=== PATIENT | female | born 1995 | race Caucasian/White ===

== ENCOUNTER → 2023-04-12 | Outpatient (CLI) | payer OTHER, SELFPAY ==
--- OUTSIDE RECORDS SUMMARY | 2023-04-12 16:45 | XMS RPT_ITS | CCD ---
Author Name Unknown Address [address] [place] [address] Organization [facility] Care Team Providers Care General Ophthalmologist Name Role Phone Unavailable Primary Care Provider Unavailabl e STEPH SILVERMAN Attending Unavailable Herrera [employer]OR[employer] STRAIGHTENER AND HEATER.Steph JAMES Primary Care Provider HERRERA STEPH A Primary Care Unavailable JOSE LUIS MARTIN Attending Unavailable EHRRERA STEPH A Primary Care Unavailable JOSE LUIS MARTIN Attending Unavailable HERRERA STEPH Alicia Primary Care Unavailable JOSE LUIS MARTIN Attending Unavailable MERA JOVEL Referring Unavailable QUEDEN, STEPH A Primary Care Unavailable MERA JOVEL Attending Unavailable QUEJUAN DAVID, STEPH A Primary Care Unavailable HERRERA, STEPH A Primary Care Unavailable JOSE LUIS MARTIN Attending Unavailable HERRERA STEPH A Primary Care Unavailable MITCH JULIEN Attending Unavailable Medications Completed/Discontinued Medications Medication Drug Class(es) Dates Sig (Normalized) Sig (Original) Ethinyl Estradiol / Levonorgestrel (6 sources) Progestin, Estrogen, Progestin-containing Intrauterine Device take 1 tablet by mouth once daily Levonorgestrel-Et hinyl Estrad (LESSINA) 0.1mg - 20mcg per tablet Take 1 tablet by mouth once daily. 0 Active Problems Active Problems Problem Classification Problem Date Documented Date Episodic/Chronic Anxiety disorders (2 sources) Mixed anxiety and depressive disorder; Translations: [Anxiety disorder, unspecified] Onset: 12-24-2021 Chronic Joint disorders and dislocations; trauma-related (3 sources) Dislocation of temporomandibular joint; Translations: [Dislocation of jaw, unspecified side, subsequent encounter] Onset: 03-04-2023 03-02-2023 Episodic Menstrual disorders (2 sources) Menorrhagia; Translations: [Excessive and frequent menstruation with regular cycle] Onset: 12-31-2022 12-30-2022 Chronic Mood disorders (1 source) Mood disorders; Translations: [Anxiety and depression] Onset: 12-24-2021 Past or Other Problems Problem Classification Problem Date Documented Da te Episodic/Chronic Malaise and fatigue (2 sources) Fatigue; Translations: [Other fatigue] Onset: 12-31-2022 12-30-2022 Episodic Results Test Name Value Interpretation Reference Range Facil ity Vital Signs Date Time Vital Sign Value Performing Clinician Ruchi mcintyre 12-30-2022 18:47-0400 Body weight 45.81 kg Mera Jovel [employer]ENER [employer] HE[employer].PLANT UTILITY PERSON Work Phone: [facility] 12-30-2022 18:47-0400 Diastolic blood pressure 72 mm[Hg] Mera Jovel [employer]ENER [employer] HE[employer].PLANT UTILITY PERSON Work Phone: [facility] 12-30-2022 18:47-0400 Heart rate 94 /min Mera Jovel [employer]ENER AND HEATER.PLANT UTILITY PERSON Work Phone: [facility] 12-30-2022 18:47-0400 Respiratory rate 16 /min Mera Jovel [employer]ENER AND HEATER.PLANT UTILITY PERSON Work Phone: [facility] 12-30-2022 18:47-0400 Systolic blood pressure 100 mm[Hg] Mera Jovel [employer]ENER AND HEATER.PLANT UTILITY PERSON Work Phone: [facility] 12-24-2021 14:19-0400 Body height 157.5 cm Steph Silverman [employer]ENER AND HEATER.PLANT UTILITY PERSON Work Phone: [facility] 12-24-2021 14:19-0400 Body temperature 98.4 [degF] Steph Mikeden [employer]ENER AND HEATER.PLANT UTILITY PERSON Work Phone: [facility] 12-24-2021 14:19-0400 Body weight 44.27 kg Stephrosa elena Silverman [employer]ENER AND HEATER.PLANT UTILITY PERSON Work Phone: [facility] 12-24-2021 14:19-0400 Diastolic blood pressure 62 mm[Hg] Steph Mckeonden [employer]ENER AND HEATER.PLANT UTILITY PERSON Work Phone: [facility] 12-24-2021 14:19-0400 Heart rate 98 /min Steph Silverman [employer]ENER AND HEATER.PLANT UTILITY PERSON Work Phone: [facility] 12-24-2021 14:19-0400 Respiratory rate 18 /min Steph Silverman [employer]ENER AND HEATER.PLANT UTILITY PERSON Work Phone: [facility] 12-24-2021 14:19-0400 SaO2% (BldA) [Mass fraction] 98 % Steph Silverman [employer]ENER AND HEATER.PLANT UTILITY PERSON Work Phone: [facility] 12-24-2021 14:19-0400 Systolic blood pressure 110 mm[Hg] Steph Silverman [employer] AND HEATER.PLANT UTILITY PERSON Work Phone: [facility] Encounters Encounter Date Encounter Type Care Provider Facility Start: 04-05-2023 End: 04-05-2023 ambulatory STEPH A QUEDEN Facility:[facility] Start: 03-29-2023 End: 03-29-2023 ambulatory STEPH A QUEDEN Facility:[facility] Start: 03-24-2023 End: 03-24-2023 ambulatory STEPH A QUEDEN Facility:[facility] Start: 03-18-2023 End: 03-18-2023 ambulatory STEPH A QUEDEN Facility:[facility] Start: 03-02-2023 End: 03-02-2023 ambulatory STEPH A QUEDEN Facility:[facility] Start: 03-02-2023 End: 03-02-2023 ambulatory Jose Luis Tolentino [facility] Physical Therapy Plan of Treatment Date Care Activity Detail Author Start: 12-30-2022 End: 03-01-2023 CBC W Auto Differential panel - Blood CBC + DIFF Lab Routine Fatigue, unspecified type Menorrhagia with regular cycle Expected: 12/30/2022, Expires: 03/01/2023 [facility] Work Phone: Payers Date Payer Category Payer Private Health Insurance [id number] 2023 Private Health Insurance [employer] A ETNA POS [id number] 2023-Present [phone] [address] [place] [address] POS [id number] 2023 Private Health Insurance [id number] 2022 Unknown [employer] BLUE CARD PPO OOS [id number] 2022-Present [phone] [address] [place] [address] PPO [id number] 2022 Unknown [id number] Social History Date Type Detail Facility Start: 12-24-2021 Tobacco smoking stat [facility] Never smoked tobacco [facility] Start: 12-24-2021 Tobacco use and exposure Smokeless tobacco non-user [facility] Start: 12-24-2021 Alcohol intake Ex-drinker (finding) [facility] Start: 1995 Sex Assigned At Not on file [facility] Start: 12-14-2021 End: 12-24-2021 Exposure to SARS-CoV-2 (event) Not sure [facility] Start: 12-24-2021 End: 12-23-2022 History of Social function [facility] Work Phone: Start: 12-24-2021 End: 12-23-2022 Tobacco use panel [facility] Work Phone: Adult Depression Screening Assessment 2 [facility] Work Phone: Has the [employer] threatened to shut off services in your home in past 12Mo No [facility] Are you now , , , , never or living with a partner? [facility] How often to you hav e a drink containing alcohol? Never [facility] Do you feel stress - tense, restless, nervous, or anxious, or unable to sleep at night because your mind is troubled all the time - these days [OSQ] Not at all [facility] (I/We) worried wheth er (my/our) food would run out before (I/we) got money to buy more. Never true [facility] Clinical Notes 12-24-2021 to 04-08-2023 Jose Luis Martin, PT - 03/04/2023 12:57 PM Jose Luis Ortega, PT - 03/02/2023 8:27 AM KARLIESole subramanian END WORKER - 01/13/2023 9:54 AM EDTTelephone Encounter - Antonieta Moore END WORKER - 01/04/2023 12:17 PM EDT Note Date & Type Note Facility 04-08-2023 Note HNO ID: [id number] Author: JOSE LUIS MARTIN PT Service: ? Author Type: Physical Therapist Type: Progress Notes Filed: 04/08/2023 10:10 Note Text: Episode Visit Count: 5 Therapist That Will Accept/Oversee The Plan Of Care: Jose Luis Martin Start of Care Date: 03/02/23 Onset Date: 10/31/22 REHABILITATION AND SPORTS THERAPY PHYSICAL THERAPY PROGRESS REPORT PLAN OF CARE UPDATE: Assessment: Nigel Gupta demonstrates difficulty with eating, chewing, and jaw opening. She has progressed toward goals. Patient continues to present with impairments in ADL's, overall function, range of motion, strength, symptom management, and tissue tenderness that interfere with . Current prognosis is Good due to: current objective clinical presentation, good overall health status, positive past response to therapy, within-session changes, good support system/ coping skills . She will benefit from continued skilled therapy services to meet the updated goals for this plan of care as noted below. Goals updated on 04/05/2023. Goals for Episode of Care: created on 03/02/23 through 05/05/23 Patient to report symptom free with talking and chewing. Not met Decrease tenderness to palpation of craniofacial and intraoral musculature by 75% with no active referral symptoms. Not met Increase mandibular ROM to >40mm of opening. Progressing towards Planned Interventions, Frequency, and Duration: 1x every other week, 4 weeks Total Number of Visits Planned: 2 Patient to be seen for Therapeutic exercise (65206), Neuromuscular re-education (97521), Manual therapy (67036), Self-intermediate management (10568), Therapeutic activities (07936), Patient/Family/Caregiver Education, Body Mechanics Training PLAN FOR NEXT VISIT: Continue lateral pterygoid work SUBJECTIVE: So far patient has only seen temporary improvements with no lasting change. Pain: Pain Pain Level: 4 Pain Location: Jaw Description: Aching, Sore, Tightness Frequency: Intermittent PROMIS Scales Higher is Better 03/29/2023 02/28/2023 Phys Func - Score 57 (within normal limits) 62 (within normal limits) Phys Func - Percentile 76% 88% Self-Eff Symptom - Score 41 (Average) 41 (Average) Self-Eff Symptom - Percentile 18% 18% T-scores: mean of general population = 50. 5 points is clinically meaningfully difference Percentiles provide an indication of how the patient's score ranks in relation to the general population. Higher percentile rankings indicate better function/quality of life. 50th percentile is the average of the general population and indicates half of respondents had a worse score. OBJECTIVE MEASURES WITH LEVEL OF FUNCTION: TMJ AROM Mandibular Opening (mm): 36 Millimeters Mandibular Lateral Excursion Right (mm): 6 Millimeters TREATMENT: Therapeutic Exercise: 1: *Tongue against roof of mouth opening 3x5 2: *Box exercise 3x5 3: *Lateral excursion 3x5/side 4: Jaw isometrics 3x20 sec (instructed to do so after manual) Skilled Intervention: Patient was educated in proper exercise technique and purpose for exercises. Skilled judgment was used in selection of appropriate interventions. Provided written instruction for home exercise program to facilitate proper performance and compliance. Correct performance of therapeutic exercises was facilitated with verbal, visual, and tactile cuing. Manual Therapy: 1: L inferior, posterior, and R lateral mobs grades 3-4 x30 each 2: STM and TrPr to L masseter, medial pterygoid with push to tolerance Dry Needling: (1) 30 mm needle to L superior lateral pterygoid with placement of needle only Skilled Intervention: Manual skills to improve joint mobility, ROM, and decrease pain. Utilized anatomy knowledge of the therapist, and assessment of patient's response to intervention. Billing Therapeutic Exercise Treatment Minutes: 15 Manual TherapyTreatment Minutes: 35 Skilled Treatment Time Minutes (timed and untimed codes): 50 Total Session Time (minutes): 50 Session Start Time : 1710 Session Stop Time : 1800 Jose Luis Martin PT [facility] 03-30-2023 Note HNO ID: [id number] Author: JOSE LUIS MARTIN PT Service: ? Author Type: Physical Therapist Type: Progress Notes Filed: 03/30/2023 14:49 Note Text: Episode Visit Count: 4 Therapist That Will Accept/Oversee The Plan Of Care: Jose Luis Martin Start of Care Date: 03/02/23 Onset Date: 10/31/22 REHABILITATION AND SPORTS THERAPY PHYSICAL THERAPY TREATMENT NOTE ASSESSMENT: Nigel Gupta tolerated the session with decreased symptoms. She demonstrated difficulty with TMJ pain. The patient will continue to benefit from ongoing skilled physical therapy to progress toward set goals and progress report by evaluating physical therapist. PLAN FOR NEXT VISIT: [place] SUBJECTIVE: Patient saw no improvements after last session. Notes that she is doing better opening in a straight line, but pain remains Pain: Pain Pain Level: 4 Pain Location: Jaw Description: Aching, Sore, Tightness Frequency: Intermittent OBJECTIVE MEASURES WITH LEVEL OF FUNCTION: TMJ AROM Mandibular Opening (mm): 36 Millimeters TREATMENT: Manual Therapy: 1: L inferior, posterior, and R lateral mobs grades 3-4 x30 each 2: STM and TrPr to L masseter, medial pterygoid with push to tolerance Dry Needling: (1) 25 mm needle to L lateral pterygoid with pistoning (1 needle in, 1 needle out, patient consent gained) Skilled Intervention: Manual skills to improve joint mobility, ROM, and decrease pain. Utilized anatomy knowledge of the therapist, and assessment of patient's response to intervention. Billing Manual TherapyTreatment Minutes: 54 Skilled Treatment Time Minutes (timed and untimed codes): 54 Total Session Time (minutes): 54 Session Start Time : 1716 Session Stop Time : 1810 Jose Luis Martin PT [facility] 03-24-2023 Note HNO ID: [id number] Author: JOSE LUIS MARTIN PT Service: ? Author Type: Physical Therapist Type: Progress Notes Filed: 03/24/2023 18:16 Note Text: Episode Visit Count: 3 Therapist That Will Accept/Oversee The Plan Of Care: Jose Luis Martin Start of Care Date: 03/02/23 Onset Date: 10/31/22 REHABILITATION AND SPORTS THERAPY PHYSICAL THERAPY TREATMENT NOTE ASSESSMENT: Nigel Gupta tolerated the session with decreased symptoms and expected muscle soreness. She demonstrated improvements in jaw mobility post session. The patient will continue to benefit from ongoing skilled physical therapy to progress toward set goals. PLAN FOR NEXT VISIT: Continue manual, may try lateral pterygoid again SUBJECTIVE: Patient had 2 days of relief after first session, then last session she said it felt good, but no lasting relief Pain: Pain Pain Level: 4 Pain Location: Jaw Description: Aching, Sore, Tightness Frequency: Intermittent OBJECTIVE MEASURES WITH LEVEL OF FUNCTION: TMJ AROM Mandibular Opening (mm): 36 Millimeters Mandibular Lateral Excursion Right (mm): 4 Millimeters (7 post session) TREATMENT: Manual Therapy: 1: STM to L masster superficial and deep, and medial pterygoid with push to tolerance 2: L inferior, posterior, and R lateral mobs grade 3-4 x20 each Dry Needling: (2) 25 mm needles to L deep massater with pistoning (2 needles in, 2 needles out. Patient consent gained) Skilled Intervention: Manual skills to improve joint mobility, ROM, and decrease pain. Utilized anatomy knowledge of the therapist, and assessment of patient's response to intervention. Billing Manual TherapyTreatment Minutes: 42 Skilled Treatment Time Minutes (timed and untimed codes): 42 Total Session Time (minutes): 42 Session Start Time : 1711 Session Stop Time : 1753 Jose Luis Martin PT [facility] 03-18-2023 Note HNO ID: [id number] Author: Mitch Julien PT, DPT Service: ? Author Type: Physical Therapist Type: Progress Notes Filed: 03/18/2023 8:17 AM Note Text: Episode Visit Count: 2 Therapist That Will Accept/Oversee The Plan Of Care: Jose Luis Martin Start of Care Date: 03/02/23 Onset Date: 10/31/22 Patient Identified by Name and Date of : Yes REHABILITATION AND SPORTS THERAPY PHYSICAL THERAPY TREATMENT NOTE ASSESSMENT: Nigel Gupta tolerated the session with decreased symptoms. She demonstrated ongoing difficulty with right lateral excursion. Ongoing tension in TMJ muscles during STM. The patient will continue to benefit from ongoing skilled physical therapy to progress toward set goals. PLAN FOR NEXT VISIT: assess carry over, continue manual to musculature and L TMJ inferior distractions SUBJECTIVE: Patient reports she felt well for about 2 days after the previous session, but the pain has since returned. Lateral excursion continues to be difficult. Pain: Pain Pain Level: 4 Pain Location: Jaw Post Treatment Pain Post Treatment Pain Level: Better Post Treatment Pain Location: Jaw OBJECTIVE MEASURES WITH LEVEL OF FUNCTION: TMJ AROM Mandibular Lateral Excursion Right: Millimeter(s) Mandibular Lateral Excursion Right (mm): 5 Millimeters Mandibular Lateral Excursion Left: Millimeter(s) Mandibular Lateral Excursion Left (mm): 8 Millimeters UE and Cervical Strength Deep Neck Flexor Endurance: 23.4 seconds TREATMENT: Therapeutic Exercise: 1: *Box exercise 3x5 2: *Opening in mirror 2x10, tongue to roof of mouth 3: *Lateral excursion x10/side with needle tubing 4: Cervical retraction 5 sec hold x10 5: TMJ isometrics 5 sec hold opeing and bilat lateral excursion x10 Skilled Intervention: Patient was educated in proper exercise technique and purpose for exercises. Reviewed and educated patient on additions/changes for home exercise program as above (*). Skilled judgment was used in selection of appropriate interventions. Correct performance of therapeutic exercises was facilitated with verbal and visual cuing. Manual Therapy: 1: STM to L masseter deep and superficial, and suboccipitals with push to tolerance, tension noted in deep masseter 2: L inferior TMJ mobs 2x20m grade 3 mobs Skilled Intervention: Manual skills to improve joint mobility, ROM, and decrease pain. Utilized anatomy knowledge of the therapist, and assessment of patient's response to intervention. Billing Therapeutic Exercise Treatment Minutes: 32 Manual TherapyTreatment Minutes: 10 Skilled Treatment Time Minutes (timed and untimed codes): 42 Total Session Time (minutes): 44 Session Start Time : 730 Session Stop Time : 814 Mitch Julien PT, DPT [facility] 03-04-2023 Note HNO ID: [id number] Author: Jose Luis Martin PT Service: ? Author Type: Physical Therapist Type: Progress Notes Filed: 03/04/2023 1:01 PM Note Text: Episode Visit Count: 1 Therapist That Will Accept/Oversee The Plan Of Care: Jose Luis Martin Start of Care Date: 03/02/23 Onset Date: 10/31/22 Patient Identified by Name and Date of : Yes REHABILITATION AND SPORTS THERAPY PHYSICAL THERAPY EVALUATION PLAN OF CARE: Assessment: Nigel Gupta presents with chief complaint of L sided TMJ that interferes with Comments eating, chewing, jaw opening. She presents with impairments in ADL's, overall function, range of motion, symptom management, and tissue tenderness. PROMIS? (Patient-Reported Outcomes Measurement Information System) scores were reviewed and self efficacy domain identified as a rehabilitation concern. Prognosis for therapy is Good due to: current objective clinical presentation, good overall health status, within-session changes, good support system/ coping skills . She will benefit from skilled therapy services to meet the goals established for this plan of care as noted below. Goals for Episode of Care: created on 03/02/23 through 05/05/23 Patient to report symptom free with talking and chewing. Decrease tenderness to palpation of craniofacial and intraoral musculature by 75% with no active referral symptoms. Increase mandibular ROM to >40mm of opening. Planned Interventions, Frequency, and Duration: Current Frequency: 1x/week Duration: 8 weeks Total Number of Visits Planned: 8 Planned Treatment Interventions: Therapeutic exercise (54476), Neuromuscular re-education (18368), Manual therapy (47211), Therapeutic activities (55734), Self-intermediate management (91768), Patient/Family/Caregiver Education, Body Mechanics Training PLAN FOR NEXT VISIT: assess carry over, continue manual to msuculature and L TMJ inferior distractions Patient demonstrates good understanding of plan of care and treatment. The above goals and plan of care were discussed and agreed upon by patient/family. SUBJECTIVE: L sided jaw pain and difficulty with opening. Notes pain for 4 months and large deviation to the left with opening. used to pop and click, but now it is more just pain and restricted motion Functional Limitations: Comments Functional Limitation Comments: eating, chewing, jaw opening Prior Level of Function: Independent without limitations Intake Information: Prescription present Previous Treatment: Occupational Therapy, Massage Vestibular Jaw Symptoms: Yes Description: aching, soreness (tight) Rating of current symptoms: 7/10 Location: left Frequency: Intermittent Duration: minutes Symptoms worsened by: eating Symptoms improved by: soft diet Pain: Pain Pain Level: 7 Pain Location: Jaw Description: Aching, Sore, Tightness Frequency: Intermittent PROMIS Scales Higher is Better 02/28/2023 Phys Func - Score 62 (within normal limits) Phys Func - Percentile 88% Self-Eff Symptom - Score 41 (Average) Self-Eff Symptom - Percentile 18% T-scores: mean of general population = 50. 5 points is clinically meaningfully difference Percentiles provide an indication of how the patient's score ranks in relation to the general population. Higher percentile rankings indicate better function/quality of life. 50th percentile is the average of the general population and indicates half of respondents had a worse score. OBJECTIVE MEASURES WITH LEVEL OF FUNCTION: Cervical Spine ROM Cervical ROM : Upper Cervical PROM OA ([place]-occipital) Flexion PROM: mild restriction AA ([place]-axial) Rotation PROM: WNL Upper Cervical PROM: grossly WNL with minimal to nil restrictions TMJ Observations Trismus: No Left TMJ Palpation Tenderness: Intraoral deep masseter, Superficial masseter, Lateral pterygoid, Temporalis TMJ AROM Mandibular Opening: Millimeter(s) Mandibular Opening (mm): 35 Millimeters Mandibular Protrusion: WNL Mandibular Lateral Excursion Right: Millimeter(s) Mandibular Lateral Excursion Right (mm): 3 Millimeters Mandibular Lateral Excursion Left: Millimeter(s) Mandibular Lateral Excursion Left (mm): 10 Millimeters Deviation with range of motion: Present (straight to the left) Spine Joint Mobility Joint Mobility - C1: Hypomobile Education: Education Learning/educational needs: Home exercise program, Plan of Care, Changes in Plan of Care, Posture, Body Mechanics TREATMENT: PT Treatment Interventions: Therapeutic Exercise, Manual Therapy Evaluation Therapeutic Exercise: 1: *Box exercise 3x5 2: *Opening in mirror 3x5 3: *Lateral excursion 3x5/side with cotton rolls Skilled Intervention: Patient was educated in proper exercise technique and purpose for exercises. Skilled judgment was used in selection of appropriate interventions. Provided written instruction for home exercise program to facilitate proper performance and comp (more content not included)... [facility] 03-04-2023 History of Presen t illness Narrative Episode Visit Count: 1 Therapist That Will Accept/Oversee The Plan Of Care: Jose Luis Martin Start of Care Date: 03/02/23 Onset Date: 10/31/22 Patient Identified by Name and Date of : Yes REHABILITATION AND SPORTS THERAPY PHYSICAL THERAPY EVALUATION PLAN OF CARE: Assessment: Nigel Gupta presents with chief complaint of L sided TMJ that interferes with Comments eating, chewing, jaw opening. She presents with impairments in ADL's, overall function, range of motion, symptom management, and tissue tenderness. PROMIS (Patient-Reported Outcomes Measurement Information System) scores were reviewed and self efficacy domain identified as a rehabilitation concern. Prognosis for therapy is Good due to: current objective clinical presentation, good overall health status, within-session changes, good support system/ coping skills . She will benefit from skilled therapy services to meet the goals established for this plan of care as noted below. Goals for Episode of Care: created on 03/02/23 through 05/05/23 Patient to report symptom free with talking and chewing. Decrease tenderness to palpation of craniofacial and intraoral musculature by 75% with no active referral symptoms. Increase mandibular ROM to >40mm of opening. Planned Interventions, Frequency, and Duration: Current Frequency: 1x/week Duration: 8 weeks Total Number of Visits Planned: 8 Planned Treatment Interventions: Therapeutic exercise (64175), Neuromuscular re-education (41786), Manual therapy (32364), Therapeutic activities (69645), Self-intermediate management (68516), Patient/Family/Caregiver Education, Body Mechanics Training PLAN FOR NEXT VISIT: assess carry over, continue manual to msuculature and L TMJ inferior distractions Patient demonstrates good understanding of plan of care and treatment. The above goals and plan of care were discussed and agreed upon by patient/family. SUBJECTIVE: L sided jaw pain and difficulty with opening. Notes pain for 4 months and large deviation to the left with opening. used to pop and click, but now it is more just pain and restricted motion Functional Limitations: Comments Functional Limitation Comments: eating, chewing, jaw opening Prior Level of Function: Independent without limitations Intake Information: Prescription present Previous Treatment: Occupational Therapy, Massage Vestibular Jaw Symptoms: Yes Description: aching, soreness (tight) Rating of current symptoms: /10 Location: left Frequency: Intermittent Duration: minutes Symptoms worsened by: eating Symptoms improved by: soft diet Pain: Pain Pain Level: 7 Pain Location: Jaw Description: Aching, Sore, Tightness Frequency: Intermittent PROMIS Scales Higher is Better 02/28/2023 Phys Func - Score 62 (within normal limits) Phys Func - Percentile 88% Self-Eff Symptom - Score 41 (Average) Self-Eff Symptom - Percentile 18% T-scores: mean of general population = 50. 5 points is clinically meaningfully difference Percentiles provide an indication of how the patient's score ranks in relation to the general population. Higher percentile rankings indicate better function/quality of life. 50th percentile is the average of the general population and indicates half of respondents had a worse score. OBJECTIVE MEASURES WITH LEVEL OF FUNCTION: Cervical Spine ROM Cervical ROM : Upper Cervical PROM OA (Atlanto-occipital) Flexion PROM: mild restriction AA ([place]-axial) Rotation PROM: WNL Upper Cervical PROM: grossly WNL with minimal to nil restrictions TMJ Observations Trismus: No Left TMJ Palpation Tenderness: Intraoral deep masseter, Superficial masseter, Lateral pterygoid, Temporalis TMJ AROM Mandibular Opening: Millimeter(s) Mandibular Opening (mm): 35 Millimeters Mandibular Protrusion: WNL Mandibular Lateral Excursion Right: Millimeter(s) Mandibular Lateral Excursion Right (mm): 3 Millimeters Mandibular Lateral Excursion Left: Millimeter(s) Mandibular Lateral Excursion Left (mm): 10 Millimeters Deviation with range of motion: Present (straight to the left) Spine Joint Mobility Joint Mobility - C1: Hypomobile Education: Education Learning/educational needs: Home exercise program, Plan of Care, Changes in Plan of Care, Posture, Body Mechanics TREATMENT: PT Treatment Interventions: Therapeutic Exercise, Manual Therapy Evaluation Therapeutic Exercise: 1: *Box exercise 3x5 2: *Opening in mirror 3x5 3: *Lateral excursion 3x5/side with cotton rolls Skilled Intervention: Patient was educated in proper exercise technique and purpose for exercises. Skilled judgment was used in selection of appropriate interventions. Provided written instruction for home exercise program to facilitate proper performance and compliance. Correct performance of therapeutic exercises was facilitated with verbal, visual, and tactile cuing. Manual Therapy: 1: STM to L masseter deep and superficial, temporalis, SCM, and suboccipitals with push to tolerance 2: L inferior TMJ mobs 2x20m grade 3-4 mobs Dry Needling: (1) 30 mm needle to L lateral pterygoid with placement of needle only (1 needle in, 1 needle out. Patient consent gained after discussing risks, benefits) Skilled Intervention: Manual skills to improve joint mobility, ROM, and decrease pain. Utilized anatomy knowledge of the therapist, and assessment of patient's response to intervention. Billing * Evaluation Low Complexity: 1 Unit Therapeutic Exercise Treatment Minutes: 10 Manual TherapyTreatment Minutes: 30 Skilled Treatment Time Minutes (timed and untimed codes): 55 Total Session Time (minutes): 55 Session Start Time : 729 Session Stop Time : 824 Jose Luis Martin PT Program_ID:[id number] Access Code: [email or web address] URL: [email or web address] Date: 03-02-2023 Prepared By: Jose Luis Martin Program Notes Exercises - 4-Step TMJ Disc Recapture - 1 x daily - 7 x weekly - 3 sets - 5 reps - Isometric Jaw Deviation - 1 x daily - 7 x weekly - 2-3 sets - 5 reps - Controlled Jaw Opening with Tongue on Roof of Mouth - 1 x daily - 7 x weekly - 2-3 sets - 5 reps documented in this encounter [facility] 01-14-2023 Note HNO ID: [id number] Author: Mera Jovel APRN.PLANT UTILITY PERSON Service: ? Author Type: Nurse Practitioner Type: Progress Notes Filed: 01/14/2023 7:47 AM Note Text: Please let patient know her lipid panel is normal. [facility] 01-13-2023 Note HNO ID: [id number] Author: Sole Cassidy LPN Service: ? Author Type: ? Type: Progress Notes Filed: 01/13/2023 9:54 AM Note Text: Scan on 01/12/2023 9:20 AM by ProviderKathy PA-C: Chemistry [facility] 01-13-2023 History of Presen t illness Narrative Scan on 01/12/2023 9:20 AM by Kathy Pettit PA-C: Chemistry documented in this encounter [facility] 01-04-2023 Miscellaneous Notes Pt notified of results and provider message. Antonieta Moore LPN Called and left a voicemail for the Patient to call back and ask for a nurse to receive the providers message. Kika Castro, FREDY Please let patient know he labs are normal. documented in this encounter [facility] 12-30-2022 Note HNO ID: [id number] Author: Mera Jovel APRN.PLANT UTILITY PERSON Service: ? Author Type: Nurse Practitioner Type: Progress Notes Filed: 12/30/2022 7:07 PM Note Text: Chief Complaint Patient presents with: Fatigue heavy periods HPI Nigel Gupta is a 27 year old female who presents here today for Above Complaints. Patient presents with complaints of heavy periods and fatigue. Patient reports history of iron deficiency but is not currently on any iron supplementation. Patient reports she stopped taking her BC about 6 months ago. Past medical history, appointments, medications, allergies reviewed. Previous Medical History PAST MEDICAL HISTORY Diagnosis Date Generalized anxiety disorder Previous Surgical History No past surgical history on file. Family History FAMILY HISTORY Problem Relation Age of Onset other (Bladder cancer) Maternal Grandmother Patient Allergies ALLERGIES No Known Allergies Current Medications Current Outpatient Medications on File Prior to Visit Medication Sig Levonorgestrel-Ethinyl Estrad (LESSINA) 0.1mg - 20mcg per tablet Take 1 tablet by mouth once daily. sertraline (ZOLOFT) 25 mg tablet Take 1 tablet by mouth once daily. No current facility-administered medications on file prior to visit. Social History Social History Tobacco Use Smoking status: Never Smokeless tobacco: Never Substance Use Topics Alcohol use: Not Currently Drug use: Never Review of Symptoms REVIEW OF SYSTEMS SEE HPI EXAM: BP 100/72 Pulse 94 Resp 16 Wt 45.8 kg (101 lb) BMI 18.47 kg/m? General Appearance: Well appearing, alert, in no acute distress, well-hydrated, well nourished.. Health Maintenance List Hepatitis B Vaccine(1 of 3 - 3-dose series) Never done Covid-19 Vaccine(1) Never done HPV Vaccine(1 - 2-dose series) Never done Hepatitis C Screening Never done HIV Screening Never done DTaP,Tdap,Td Vaccine(1 - Tdap) Never done Pap Testing Never done Depression Assessment due on 03/21/2022 Influenza Vaccine(1) Never done ASSESSMENT/PLAN: 1. Fatigue, unspecified type - ICD9: 780.79, ICD10: R53.83 (primary diagnosis) - CBC + DIFF - COMP METABOLIC PANEL - IRON + TIBC - FERRITIN BLD 2. Menorrhagia with regular cycle - ICD9: 626.2, ICD10: N92.0 - CBC + DIFF - COMP METABOLIC PANEL - IRON + TIBC - FERRITIN BLD Mera Jovel, [employer] STRAIGHTENER [employer] HEATER.PLANT UTILITY PERSON [facility] 12-30-2022 History of Presen t illness Narrative Chief Complaint Patient presents with: Fatigue heavy periods HPI Nigel Gupta is a 27 year old female who presents here today for Above Complaints. Patient presents with complaints of heavy periods and fatigue. Patient reports history of iron deficiency but is not currently on any iron supplementation. Patient reports she stopped taking her BC about 6 months ago. Past medical history, appointments, medications, allergies reviewed. Previous Medical History PAST MEDICAL HISTORY Diagnosis Date Generalized anxiety disorder Previous Surgical History No past surgical history on file. Family History FAMILY HISTORY Problem Relation Age of Onset other (Bladder cancer) Maternal Grandmother Patient Allergies ALLERGIES No Known Allergies Current Medications Current Outpatient Medications on File Prior to Visit Medication Sig Levonorgestrel-Ethinyl Estrad (LESSINA) 0.1mg - 20mcg per tablet Take 1 tablet by mouth once daily. sertraline (ZOLOFT) 25 mg tablet Take 1 tablet by mouth once daily. No current facility-administered medications on file prior to visit. Social History Social History Tobacco Use Smoking status: Never Smokeless tobacco: Never Substance Use Topics Alcohol use: Not Currently Drug use: Never Review of Symptoms REVIEW OF SYSTEMS SEE HPI EXAM: BP 100/72 Pulse 94 Resp 16 Wt 45.8 kg (101 lb) BMI 18.47 kg/m General Appearance: Well appearing, alert, in no acute distress, well-hydrated, well nourished.. Health Maintenance List Hepatitis B Vaccine(1 of 3 - 3-dose series) Never done Covid-19 Vaccine(1) Never done HPV Vaccine(1 - 2-dose series) Never done Hepatitis C Screening Never done HIV Screening Never done DTaP,Tdap,Td Vaccine(1 - Tdap) Never done Pap Testing Never done Depression Assessment due on 03/21/2022 Influenza Vaccine(1) Never done ASSESSMENT/PLAN: 1. Fatigue, unspecified type - ICD9: 780.79, ICD10: R53.83 (primary diagnosis) - CBC + DIFF - COMP METABOLIC PANEL - IRON + TIBC - FERRITIN BLD 2. Menorrhagia with regular cycle - ICD9: 626.2, ICD10: N92.0 - CBC + DIFF - COMP METABOLIC PANEL - IRON + TIBC - FERRITIN BLD Mera Jovel APRN.CNP documented in this encounter [facility] 12-17-2022 Miscellaneous Notes A voice mail message has been left for the patient to return our call and schedule an appointment. Sara Reece Please help assist scheduling appointment. Thank you. Patient needs an appointment before I can order labs since it's been almost a year. Patient contacted us via my chart would like to have labs drawn. Please enter orders for iron and basic lab tests is having headaches and fatigue. documented in this encounter [facility] 12-24-2021 Note HNO ID: [id number] Author: Steph Silverman APRN.CNP Service: ? Author Type: Nurse Practitioner Type: Progress Notes Filed: 12/24/2021 6:07 PM Note Text: [facility] Steph Silverman APRN-PLANT UTILITY PERSON [address] [place] [address] Dept Dept. Visit Date: December 24, 2021 Ms.Samira Gupta Date of : 1995 MRN/E #: [id number] Chief Complaint: Patient presents with: Wellness Establish Care History of Present Illness Nigel Gupta is a 26 year old female. She is a new patient to establish care. I reviewed past medical, surgical, social, and family histories today and updated chart. Allergies, chronic medications, and supplements were also reviewed. She recently moved to [place] a few days ago from [place] where her was stationed. She states she was diagnosed with anxiety in [place] and was started on Zoloft. She has been taking 12.5 mg daily but hasn't started taking the higher dose of 25 mg. She is leaving for [facility] for 3 weeks next week and is concerned about running out or if she would need to take the full dose while there. She states she is tolerating the medication well without any side effects. She has lost a few pounds but believe it was due to her anxiety. Oral control LMP was 2 weeks ago She is up to date with her Pap- will request records last year Going on honeymoon THE LAST 2 WEEKS, HAVE YOU BEEN BOTHERED BY ANY OF THE FOLLOWING? - Little interest or pleasure in doing things 1 SEVERAL DAYS Feeling down, depressed, or hopeless 1 Trouble falling or staying asleep, or sleeping too much 2 Feeling tired or having little energy 2 Poor appetite or overeating 3 Feeling bad yourself-you are a failure or have let yourself or others 0 Trouble concentrating, like reading the paper or watching TV 1 Moving/speaking slowly (others notice) OR being more fidgety/restless 0 Thoughts that you would be better off or of hurting yourself 0 PHQ TOTAL SCORE = 10 PHQ problems effect on difficulty of work, home, and social activity: 2 - SOMEWHAT DIFFICULT Feeling nervous, anxious, or on edge 3 Nearly every day Not being able to stop or control worrying 2 Over half the days Worrying too much about different things 1 Several days Trouble relaxing 3 Nearly every day Being so restless that it's hard to sit still 1 Several days Being easily annoyed or irritable 0 Not at all sure Feeling afraid as if something awful might happen 0 Not at all sure BERTRAND-7 Anxiety Score 10 If you checked off any problems, how difficult have these problems made it for you to do your work, take care of things at home, or get along with other people? Somewhat difficult The history is provided by the patient. No school speech language pathologist was used. PAST MEDICAL HISTORY Diagnosis Date Generalized anxiety disorder History reviewed. No pertinent surgical history. Social History Tobacco Use Smoking status: Never Smokeless tobacco: Never Substance Use Topics Alcohol use: Not Currently Drug use: Never Social History Social History Narrative Not on file Family History Reviewed Including Cardiac Diseases, Psychiatric Diseases, AND Substance Abuse Problem: other (Bladder cancer) Relation: Maternal Grandmother Age of Onset: (Not Specified) ALLERGIES No Known Allergies Current Outpatient Medications Medication Sig Levonorgestrel-Ethinyl Estrad (LESSINA) 0.1mg - 20mcg per tablet Take 1 tablet by mouth once daily. sertraline (ZOLOFT) 25 mg tablet Take 1 tablet by mouth once daily. No current facility-administered medications for this visit. Review of Systems Review of Systems Constitutional: Positive for unexpected weight change (lost a few pounds). Negative for appetite change, chills, diaphoresis, fatigue and fever. HENT: Negative. Eyes: Negative for visual disturbance. Respiratory: Negative for cough, chest tightness, shortness of breath and wheezing. Cardiovascular: Positive for palpitations (heart racing when anxious). Negative for chest pain. Gastrointestinal: Positive for diarrhea (when anxious) and nausea (when anxious). Negative for abdominal pain, constipation and vomiting. Endocrine: Negative. Genitourinary: Negative for dysuria, frequency, hematuria and urgency. Musculoskeletal: Negative. Skin: Negative. Neurological: Negative for dizziness, seizures, syncope, light-headedness and headaches. Hematological: Negative. Psychiatric/Behavioral: Positive for sleep disturbance. The patient is nervous/anxious. Vital Signs BP 110/62 Pulse 98 Temp 98.4 Resp 18 Ht 5' 2 (1.58m) Wt 97 lb 9.6 oz (44.3kg) SpO2 98% BMI 17.85 kg/(m2). Physical Exam Vitals and nursing note reviewed. Constitutional: Appearance: Normal appearance. HENT: Head: Normocephalic. Mouth/Throat: Mouth: Mucous membranes are moist. Eyes: Pupils: Pupil (more content not included)... [facility] 12-24-2021 History of Presen t illness Narrative Images from the original note were not included. [facility] Steph Silverman [employer] STRA[employer]-PLANT UTILITY PERSON [address] [place] [address] Dept Dept. Visit Date: December 24, 2021 Ms.Samira Gupta Date of : 1995 MRN/E #: [id number] Chief Complaint: Patient presents with: Wellness Establish Care History of Present Illness Nigel Gupta is a 26 year old female. She is a new patient to establish care. I reviewed past medical, surgical, social, and family histories today and updated chart. Allergies, chronic medications, and supplements were also reviewed. She recently moved to [place] a few days ago from [place] where her was stationed. She states she was diagnosed with anxiety in [place] and was started on Zoloft. She has been taking 12.5 mg daily but hasn't started taking the higher dose of 25 mg. She is leaving for [facility] for 3 weeks next week and is concerned about running out or if she would need to take the full dose while there. She states she is tolerating the medication well without any side effects. She has lost a few pounds but believe it was due to her anxiety. Oral control LMP was 2 weeks ago She is up to date with her Pap- will request records last year Going on honeymoon THE LAST 2 WEEKS, HAVE YOU BEEN BOTHERED BY ANY OF THE FOLLOWING? - Little interest or pleasure in doing things 1 SEVERAL DAYS Feeling down, depressed, or hopeless 1 Trouble falling or staying asleep, or sleeping too much 2 Feeling tired or having little energy 2 Poor appetite or overeating 3 Feeling bad yourself-you are a failure or have let yourself or others 0 Trouble concentrating, like reading the paper or watching TV 1 Moving/speaking slowly (others notice) OR being more fidgety/restless 0 Thoughts that you would be better off or of hurting yourself 0 PHQ TOTAL SCORE = 10 PHQ problems effect on difficulty of work, home, and social activity: 2 - SOMEWHAT DIFFICULT Feeling nervous, anxious, or on edge 3 Nearly every day Not being able to stop or control worrying 2 Over half the days Worrying too much about different things 1 Several days Trouble relaxing 3 Nearly every day Being so restless that it's hard to sit still 1 Several days Being easily annoyed or irritable 0 Not at all sure Feeling afraid as if something awful might happen 0 Not at all sure BERTRAND-7 Anxiety Score 10 If you checked off any problems, how difficult have these problems made it for you to do your work, take care of things at home, or get along with other people? Somewhat difficult The history is provided by the patient. No school speech language pathologist was used. PAST MEDICAL HISTORY Diagnosis Date Generalized anxiety disorder History reviewed. No pertinent surgical history. Social History Tobacco Use Smoking status: Never Smokeless tobacco: Never Substance Use Topics Alcohol use: Not Currently Drug use: Never Social History Social History Narrative Not on file Family History Reviewed Including Cardiac Diseases, Psychiatric Diseases, & Substance Abuse Problem: other (Bladder cancer) Relation: Maternal Grandmother Age of Onset: (Not Specified) ALLERGIES No Known Allergies Current Outpatient Medications Medication Sig Levonorgestrel-Ethinyl Estrad (LESSINA) 0.1mg - 20mcg per tablet Take 1 tablet by mouth once daily. sertraline (ZOLOFT) 25 mg tablet Take 1 tablet by mouth once daily. No current facility-administered medications for this visit. Review of Systems Review of Systems Constitutional: Positive for unexpected weight change (lost a few pounds). Negative for appetite change, chills, diaphoresis, fatigue and fever. HENT: Negative. Eyes: Negative for visual disturbance. Respiratory: Negative for cough, chest tightness, shortness of breath and wheezing. Cardiovascular: Positive for palpitations (heart racing when anxious). Negative for chest pain. Gastrointestinal: Positive for diarrhea (when anxious) and nausea (when anxious). Negative for abdominal pain, constipation and vomiting. Endocrine: Negative. Genitourinary: Negative for dysuria, frequency, hematuria and urgency. Musculoskeletal: Negative. Skin: Negative. Neurological: Negative for dizziness, seizures, syncope, light-headedness and headaches. Hematological: Negative. Psychiatric/Behavioral: Positive for sleep disturbance. The patient is nervous/anxious. Vital Signs BP 110/62 Pulse 98 Temp 98.4 Resp 18 Ht 5' 2 (1.58m) Wt 97 lb 9.6 oz (44.3kg) SpO2 98% BMI 17.85 kg/(m^2). Physical Exam Vitals and nursing note reviewed. Constitutional: Appearance: Normal appearance. HENT: Head: Normocephalic. Mouth/Throat: Mouth: Mucous membranes are moist. Eyes: Pupils: Pupils are equal, round, and reactive to light. Cardiovascular: Rate and Rhythm: Normal rate and regular rhythm. Heart sounds: Normal heart sounds. No murmur heard. Pulmonary: Effort: Pulmonary effort is normal. Breath sounds: Normal breath sounds. Abdominal: General: Bowel sounds are normal. Palpations: Abdomen is soft. Tenderness: There is no abdominal tenderness. Musculoskeletal: Cervical back: Neck supple. Skin: General: Skin is warm and dry. Neurological: Mental Status: She is alert and oriented to person, place, and time. Psychiatric: Mood and Affect: Mood and affect normal. Speech: Speech normal. Behavior: Behavior normal. Thought Content: Thought content normal. Cognition and Memory: Cognition normal. Visit Diagnoses (F41.9, F32.A) Anxiety and depression (primary encounter diagnosis) Assessment and Plan 1. Anxiety and depression - ICD9: 300.00, 311, ICD10: F41.9, F32.A - Will continue her Zoloft. Advised her to try the 25 mg dose tomorrow and Tuesday to see how it makes her feel before her trip. Request previous records including her Pap, labs. F/U in 6 weeks. - SERTRALINE 25 MG TABLET - DEPRESSION SCREENING/ASSESSMENT Discussed above plan with patient and is agreeable with above plan. Follow up visit Return in about 6 weeks (around 02/04/2022) for Anxiety. Steph Silverman APRN.JACOB, signed on December 24, 2021 2:28 PM documented in this encounter [facility] Diagnosis Fatigue, unspecified type- Primary Menorrhagia with regular cycle Excessive or frequent menstruation [facility] Diagnosis Dislocation of temporomandibular joint, subsequent encounter- Primary documented in this encounter [facility] Summary Purpose Family History No Family History Records FoundNo Family History Records Found Advance Directives No Advanced Directives Records FoundNo Advanced Directives Records Found Additional Source Comments Source Comments (unrecognize d section and content) In the event this informatio n is protected by the Federal Confidentiality of Alcohol and Drug Abuse Patient Records regulations: The Federal rules restrict any use of the information to criminally investigate or prosecute any alcohol or drug abuse patient.[facility] the event this information is protected by the Federal Confidentiality of Alcohol and Drug Abuse Patient Records regulations: The Federal rules restrict any use of the information to criminally investigate or prosecute any alcohol or drug abuse patient.[facility] the event this information is protected by the Federal Confidentiality of Alcohol and Drug Abuse Patient Records regulations: The Federal rules restrict any use of the information to criminally investigate or prosecute any alcohol or drug abuse patient.[facility] the event this information is protected by the Federal Confidentiality of Alcohol and Drug Abuse Patient Records regulations: The Federal rules restrict any use of the information to criminally investigate or prosecute any alcohol or drug abuse patient.[facility] the event this information is protected by the Federal Confidentiality of Alcohol and Drug Abuse Patient Records regulations: The Federal rules restrict any use of the information to criminally investigate or prosecute any alcohol or drug abuse patient.[facility] Center[facility] the event this information is protected by the Federal Confidentiality of Alcohol and Drug Abuse Patient Records regulations: The Federal rules restrict any use of the information to criminally investigate or prosecute any alcohol or drug abuse patient.[facility] Reason for Visit (unrecogniz ed section and content) Specialty Diagnoses / Procedures Referred By Selena t Referred To Contact Family Medicine / FAMILY MEDICINE Diagnoses physical Procedures [address] [place] [address] Steph Silverman, TORCH STRAIGHTENER AND HEATER.PLANT UTILITY PERSON [address] [place] [address] Referral ID Status Reason Start Date Expiration Date Visits Requested Visits Authorized [id number] Authorized Patient Cleared - Qualified 100% FAS 12/24/2021 03/24/2022 99 99 Reason Comments Lab Orders Reason Comments Fatigue heavy periods Reason Comments Results Reason Comments Outside [id number] Ordered Reason Comments PT Eval Specialty Diagnoses / Procedures Referred By Contjan t Referred To Contact Physical Therapy / PHYSICAL THERAPY Diagnoses TMJ (Temporalmandibular Joint Syndrome) Procedures NEW RS PT TMJ Yadi Larry, DDS [address] [facility] [place] [address] Jose Luis Martin PT Referral ID Status Reason Start Date Expiration Date V isits Requested Visits Authorized [id number] Authorized 03/21/2022 03/20/2023 30 30 INFORMATION SOURCE (unrecogn ized section and content) DATE CREATED AUTHOR AUTHOR'S ORGANIZ ATION 04/09/2023 [facility] (unrecognized sec tion and content) General Ophthalmologist Relationship Specialty Start Date End Date Steph Silverman, TORCH STRAIGHTENER AND HEATER.PLANT UTILITY PERSON [address] [place] [address] PCP - General Family Medicine 04/26/22 General Ophthalmologist Relationship Specialty Start Date End Date Steph Silverman, TORCH STRAIGHTENER AND HEATER.PLANT UTILITY PERSON [address] [place] [address] PCP - General Family Medicine 04/26/22 General Ophthalmologist Relationship Specialty Start Date End Date Steph Silverman, TORCH STRAIGHTENER AND HEATER.PLANT UTILITY PERSON [address] [place], [place] [id number] PCP - General Family Medicine 04/26/22 General Ophthalmologist Relationship Specialty Start Date End Date Steph Silverman, TORCH STRAIGHTENER AND HEATER.PLANT UTILITY PERSON [address] [place] [address] PCP - General Family Medicine 04/26/22 FOR RECORDS PERTAINING TO PATIENTS WHO ARE OR HAVE BEEN ENROLLED IN A CHEMICAL DEPENDENCY/SUBSTANCEABUSE PROGRAM, SOME INFORMATION MAY BE OMITTED. This clinical summary was aggregated from multiple sources. Caution should be exercised in using it in the provision of clinical care. This summary normalizes information from multiple sources, and as a consequence, information in this document may materially change the coding, format and clinical context of patient data. In addition, data may be omitted in some cases. CLINICAL DECISIONS SHOULD BE BASED ON THE PRIMARY CLINICAL RECORDS. [employer] provides no warranty or guarantee of the accuracy or completeness of information in this document.
[2023-04-18 18:53] LABS: HPV Reflexed? NOT INDICATED
== END | disposition home or self-care (01) ==
LOC: LABSPEC 16:43
PROVIDERS: Referring Provider Nurse Practitioner Women's Health; Visit Provider Nurse Practitioner Women's Health
DX: Z12.4 Encounter for screening for malignant neoplasm of cervix (principal)
CPT/HCPCS: 88175; G0145

== ENCOUNTER → 2023-07-22 | Outpatient (CLI) | payer OTHER, SELFPAY ==
[2023-08-01 20:08] LABS: Chlamydia By Nucleic Acid AMP Negative (Negative); Gonococcus By Nucleic Acid AMP Negative (Negative)
== END | disposition home or self-care (01) ==
LOC: LABSPEC 07-30 09:12
PROVIDERS: Referring Provider Registered Nurse; Visit Provider Registered Nurse
DX: Z34.90 Encounter for supervision of normal pregnancy, unspecified, unspecified trimester (principal)
CPT/HCPCS: 87086; 87491; 87591

== ENCOUNTER → 2023-08-09 | Outpatient (CLI) | payer OTHER, SELFPAY ==
[2023-08-09 17:08] LABS: Absolute Lymphocyte Count 2.26 X10^3/uL (0.83-4.51); Absolute Neutrophil Count 5.1 X10^3/uL (2.0-7.7); Basophil# 0.02 X10^3/uL; Basophil% 0.3 % (0-1); Eosinophils% 1.3 % (0-5); Hematocrit 37.6 % (37-47); Hemoglobin 12.8 g/dL (12.0-15.0); Lymphocyte # 2.26 X10^3/ul (0.83-4.51); Lymphocyte % 28.3 % (19-41); Mean Corpuscular Hgb 30.4 pg (27.0-32.0); Mean Corpuscular Volume 89.3 fL (81-99); Mean Platelet Vol. 10.3 fl (6.2-12.0); Monocyte# 0.49 X10^3/uL; Monocyte% 6.1 % (0-10); NRBC Flagged by Analyzer 0 % (0-5); Neutrophil # 5.09 X10^3/uL (2.7-7.7); Neutrophil % 63.7 % (47-70); Platelet Count 239 K/mm3 (150-450); RBC Distribution Width CV 12.9 % (11.6-14.6); RBC Distribution Width SD 42.3 fl (35.1-43.9); Red Blood Count 4.21 M/mm3 (4.2-5.4)
[2023-08-09 18:27] LABS: HIV - WCH Non-Reactive (Nonreactive); Hepatitis B Surface Antigen Non-Reactive (Nonreactive); Hepatitis C Antibody Non-Reactive (Nonreactive); Rubella IgG Reactive (Nonreactive); Syphilis Antibodies Non-reactive
== END | disposition home or self-care (01) ==
LOC: LAB 15:56
PROVIDERS: Referring Provider Registered Nurse; Visit Provider Registered Nurse
DX: Z34.81 Encounter for supervision of other normal pregnancy, first trimester (principal)
CPT/HCPCS: 36415; 85025; 86703; 86762; 86780; 86803; 86850; 86900; 86901; 87340

== ENCOUNTER → 2023-12-13 | Outpatient (CLI) | payer OTHER, SELFPAY ==
[2023-12-13 15:47] LABS: Absolute Lymphocyte Count 1.48 X10^3/uL (0.83-4.51); Absolute Neutrophil Count 6.2 X10^3/uL (2.0-7.7); Basophil# 0.01 X10^3/uL; Basophil% 0.1 % (0-1); Eosinophil# 0.08 X10^3/uL; Hematocrit 32.7 % (37-47); Hemoglobin 10.9 g/dL (12.0-15.0); Lymphocyte # 1.48 X10^3/ul (0.83-4.51); Lymphocyte % 17.9 % (19-41); Mean Corp Hgb Conc 33.3 g/dL (32-36); Mean Corpuscular Volume 92.9 fL (81-99); Mean Platelet Vol. 9.9 fl (6.2-12.0); Monocyte# 0.48 X10^3/uL; Monocyte% 5.8 % (0-10); NRBC Flagged by Analyzer 0 % (0-5); Neutrophil # 6.19 X10^3/uL (2.7-7.7); Neutrophil % 74.6 % (47-70); Platelet Count 232 K/mm3 (150-450); RBC Distribution Width CV 13.1 % (11.6-14.6); RBC Distribution Width SD 44.2 fl (35.1-43.9); Red Blood Count 3.52 M/mm3 (4.2-5.4); White Blood Count 8.3 K/mm3 (4.4-11.0)
[2023-12-13 16:03] LABS: Glucose Challenge Gest 1H 50g 126 mg/dL (70-140)
[2023-12-13 16:44] LABS: HIV - WCH Non-Reactive (Nonreactive); Syphilis Antibodies Non-reactive
== END | disposition home or self-care (01) ==
LOC: LAB 14:41
PROVIDERS: Referring Provider Obstetrics & Gynecology; Visit Provider Obstetrics & Gynecology
DX: Z34.02 Encounter for supervision of normal first pregnancy, second trimester (principal); Z13.1 Encounter for screening for diabetes mellitus
CPT/HCPCS: 36415; 82950; 85025; 86703; 86780

== ENCOUNTER → 2024-01-10 | Outpatient (CLI) | payer OTHER, SELFPAY ==
--- NOTE | 2024-01-10 15:34 | US_ITS ---
EXAM: US , LIMITED CLINICAL INDICATION: uterine synechiae TECHNIQUE: Real-time limited ultrasound of the maternal uterus with image documentation. COMPARISON: No relevant prior studies available. FINDINGS: FETUS: Composite menstrual age by measurements is 32 weeks 3 days. GESTATIONAL AGE: Clinical gestational age is 32 weeks 0 days. TALHA: Clinical TALHA is March 06, 2024. EFW: Estimated weight is 2092 g which is at the 70th percentile for estimated age. BPD: Biparietal diameter is 7.7 cm. HC: Head circumference is 29.9 cm. AC: Abdominal circumference is 30.1 cm. FL: Femur length is 6.1 cm. POSITION: Single fetus in cephalic presentation. HEART RATE: cardiac rate is 127 bpm. PLACENTA: Anterior placenta with grade 2 maturity change. AMNIOTIC FLUID: Amniotic fluid index is 15.8 cm. Amniotic band located along the right lateral aspect of the gestational sac. No entrapment of parts. US/OB Limited With Biometrics IMPRESSION: Single live 32 week intrauterine gestation. As above. Electronically Signed: Andrae Dewitt MD at 16:58 EDT ,
== END | disposition home or self-care (01) ==
LOC: US 15:32
PROVIDERS: Referring Provider Obstetrics & Gynecology; Visit Provider Obstetrics & Gynecology
DX: N85.6 Intrauterine synechiae (principal)
CPT/HCPCS: 76816

== ENCOUNTER → 2024-01-25 | Outpatient (CLI) | payer OTHER, SELFPAY ==
[2024-01-25 17:04] LABS: Absolute Neutrophil Count 6.5 X10^3/uL (2.0-7.7); Basophil# 0.02 X10^3/uL; Basophil% 0.2 % (0-1); Eosinophil# 0.06 X10^3/uL; Eosinophils% 0.7 % (0-5); Hematocrit 35.3 % (37-47); Hemoglobin 11.9 g/dL (12.0-15.0); Lymphocyte % 18.5 % (19-41); Mean Corp Hgb Conc 33.7 g/dL (32-36); Mean Corpuscular Hgb 31.2 pg (27.0-32.0); Mean Corpuscular Volume 92.7 fL (81-99); Monocyte# 0.51 X10^3/uL; Monocyte% 5.9 % (0-10); NRBC Flagged by Analyzer 0 % (0-5); Neutrophil # 6.45 X10^3/uL (2.7-7.7); Neutrophil % 74.4 % (47-70); Platelet Count 221 K/mm3 (150-450); RBC Distribution Width SD 43.9 fl (35.1-43.9); Red Blood Count 3.81 M/mm3 (4.2-5.4); White Blood Count 8.7 K/mm3 (4.4-11.0)
== END | disposition home or self-care (01) ==
LOC: BWCLAB 16:16
PROVIDERS: Referring Provider Obstetrics & Gynecology; Visit Provider Obstetrics & Gynecology
DX: O99.019 Anemia complicating pregnancy, unspecified trimester (principal); Z3A.00 Weeks of gestation of pregnancy not specified
CPT/HCPCS: 36415; 85025

== ENCOUNTER → 2024-02-07 | Outpatient (CLI) | payer OTHER, SELFPAY ==
--- NOTE | 2024-02-07 18:08 | US_ITS ---
EXAM: US , LIMITED CLINICAL INDICATION: GROWTH TECHNIQUE: Real-time limited ultrasound of the maternal uterus with image documentation. COMPARISON: 01/10/2024. FINDINGS: FETUS: Single intrauterine gestation. GESTATIONAL AGE: Composite gestational age is 35 weeks four days. TALHA: 03/09/2024. EFW: Estimated weight is 2924 g corresponding to the 62nd percentile. BPD: 34 weeks two days. HC: 35 weeks three days. AC: 36 weeks six days. FL: 36 weeks three days. POSITION: Cephalic presentation. HEART RATE: heart rate is 147 bpm. PLACENTA: Placenta is anterior without center previa. AMNIOTIC FLUID: Amniotic fluid index is 9.9 cm with maximum vertical pocket 4.5 cm. CERVIX: Cervix not visualized. US/OB Limited With Biometrics IMPRESSION: 1. Single live intrauterine at 35 weeks and four days. On the prior exam which is approximately four weeks ago the composite gestational age was 32 weeks three days. 2. No uterine synechia identified. On the current exam. Electronically Signed: Librado Zamora MD at 7:34 EST ,
== END | disposition home or self-care (01) ==
LOC: US 18:12
PROVIDERS: PCP Nurse Practitioner Family; Referring Provider Obstetrics & Gynecology; Visit Provider Obstetrics & Gynecology
DX: Z34.90 Encounter for supervision of normal pregnancy, unspecified, unspecified trimester (principal)
CPT/HCPCS: 76816

== ENCOUNTER → 2024-02-08 | Outpatient (CLI) | payer OTHER, SELFPAY | END | disposition home or self-care (01) | LOC: LABSPEC 16:36 | PROVIDERS: PCP Nurse Practitioner Family; Referring Provider Obstetrics & Gynecology; Visit Provider Obstetrics & Gynecology | DX: Z34.02 Encounter for supervision of normal first pregnancy, second trimester (principal) | CPT/HCPCS: 87081 ==

== ENCOUNTER 2024-02-24 01:50 | Inpatient (IN) | payer OTHER, SELFPAY ==
[2024-02-23 21:43] VITALS: BP 132/90; PULSE 93
[2024-02-23 21:45] VITALS: RESP 16; TEMP 36.7
[2024-02-23 21:58] VITALS: BP 121/80; PULSE 86
[2024-02-24] VITALS (77 sets, daily range): BP systolic 90–131; BP diastolic 53–79; PULSE 86–131; RESP 16–18; TEMP 36.8–37.4; O2SAT 92–100; BMI 25.7
[2024-02-24] MEDS: Lactated Ringers 1,000 ML 999 ML IV ×2 (00:35→01:55)
[2024-02-24] MEDS: 0.9% Saline Lock 10 ML Syringe IV (01:55)
[2024-02-24 02:11] LABS: Absolute Lymphocyte Count 2.11 X10^3/uL (0.83-4.51); Absolute Neutrophil Count 11.2 X10^3/uL (2.0-7.7); Basophil# 0.03 X10^3/uL; Basophil% 0.2 % (0-1); Eosinophil# 0.04 X10^3/uL; Eosinophils% 0.3 % (0-5); Hematocrit 39.3 % (37-47); Hemoglobin 13.6 g/dL (12.0-15.0); Lymphocyte # 2.11 X10^3/ul (0.83-4.51); Lymphocyte % 14.9 % (19-41); Mean Corp Hgb Conc 34.6 g/dL (32-36); Mean Corpuscular Hgb 31.8 pg (27.0-32.0); Mean Corpuscular Volume 91.8 fL (81-99); Mean Platelet Vol. 10.8 fl (6.2-12.0); Monocyte# 0.76 X10^3/uL; Monocyte% 5.4 % (0-10); NRBC Flagged by Analyzer 0 % (0-5); Neutrophil # 11.17 X10^3/uL (2.7-7.7); Neutrophil % 78.6 % (47-70); Platelet Count 251 K/mm3 (150-450); RBC Distribution Width CV 12.8 % (11.6-14.6); RBC Distribution Width SD 42.4 fl (35.1-43.9); Red Blood Count 4.28 M/mm3 (4.2-5.4); White Blood Count 14.2 K/mm3 (4.4-11.0)
[2024-02-24 02:50] LABS: Syphilis Antibodies Non-reactive
[2024-02-24] MEDS: Lactated Ringers 1,000 ML 50 ML IV (03:07)
[2024-02-24] MEDS: fentaNYL-bupivacaine (epidural) 100 ML BAG EPIDURAL (03:22)
--- NOTE | 2024-02-24 06:48 | HP.PCM.OB_ITS ---
HPI - General General Date of Admission: 02/24/24 HPI Narrative NIGEL RAZA, is a 28 y/o @ 38 weeks 3 days who presents to L&D in active labor. She has an epidural running but is complaining of pain on her left side. Maternal Data Information TALHA Calculator Estimated Delivery Date Method Current WG Current Estimate 03/06/24 LMP (Certain) 38w 3d PFSH PFSH Medical History Anxiety and depression Home Medications ?Medication ?Instructions ?Recorded ?Last Taken ?Type docosahexaenoic acid 200 mg 1 mg PO 07/22/23 Unknown History capsule ( DHA) Allergy/AdvReac Type Severity Reaction Status Date / Time No Known Allergies Allergy Verified 02/24/24 01:59 Family History Grandmother Cancer bladder, uterine (40-50) hysterectomy Social History adopted: No household members: spouse current occupational status: employed current occupation: [employer] current occupational exposures/hazards: No pets and animals: No history of recent travel: Yes details: [place] in May out of state: Yes out of country: No sexually active: Yes Smoking Status: Never smoker alcohol intake: never substance use type: does not use well-balanced diet: daily or most days caffeine: No eating out: 4 or more times/week during the past year weight has: remained stable what type of physical activity do you participate in: weight training frequency: 1-2 times per week duration: 15-30 minutes/day seatbelt use: always do you feel safe at home: Yes 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 Elective abortions Hx Para 0 Spontaneous abortions Hx # Term Pregnancies Ectopic pregnancies Hx # Pregnancies Multiple births # of living children Visit Details Expected Delivery Route/Plan Labor Preferences- CB/BF classes: discussed labor support person: Musa labor intervention preferences: [] pain management options preferred: epidural cut cord/dad catch: yes : yes PP control planned: discussed discussed possible routes of delivery and associated risks: [] special requests: [] Plans Covid status: [] Flu vaccine: declines Tdap vaccine: declines Rhogam: NA LARC form signed: yes Problem list reviewed and updated with the most current plan of care details and appropriate orders placed. Relevant counseling for the gestational age provided. Continue routine care and follow up unless otherwise noted in visit notes/problem list details OB Flowsheet Initial Weight: 108 lb Date -?-?-?-?-?-?-?-?-?-?-?-?- EGA Weight BP Urine Prot -?-?-?-?-?-?-?-?-?-?-?-?- Glucose FHR FuHt Pres Dilation -?-?-?-?-?-?-?-?-?-?-?-?- Effaced St Visit Note 07/29/23 -?-?-?-?-?-?-?-?-?-?-?-?- 8w 3d 108 lb 8 oz (+8 oz) 109/71 -?-?-?-?-?-?-?-?-?-?-?-?- 165 -?-?-?-?-?-?-?-?-?-?-?-?- LC- CRL con with LMP. desires NIPT today, declines carrier screening. 08/23/23 -?-?-?-?-?-?-?-?-?-?-?-?- 12w 0d 107 lb 2 oz (-14 oz) 112/71 Negative -?--?-?-?-?-?-?-?-?-?-?-?- Negative 160 -?-?-?-?-?-?-?-?-?-?-?-?- JV- CRL measurin g 12 weeks. Low risk NIPT boy! 09/19/23 -?-?-?-?-?-?-?-?-?-?-?-?- 15w 6d 110 lb 8 oz (+2 lb 8 oz) 116/71 Negative -?-?-?-?-?-?-?-?-?-?-?-?- Negative 154 -?-?-?-?-?-?-?-?-?-?-?-?- KW- no vb/se mendoza. US anatomy on 10/1910/18/23 -?-?-?-?-?-?-?-?-?-?-?-?- 20w 0d 116 lb 2 oz (+8 lb 2 oz) 109/74 Negative -?-?-?-?-?-?-?-?-?-?-?-?- Negative 153 -?-?-?-?-?-?-?-?-?-?-?-?- -No VB. Feelin g some movement. Denies concerns 11/15/23 -?-?-?-?-?-?-?-?-?-?-?-?- 24w 0d 122 lb (+14 lb) 111/72 Negative -?-?-?-?-?-?-?-?-?-?-?-?- Negative 150 -?-?-?-?-?-?-?-?-?-?-?-?- SM- no vb lof go od fm no regular ctx discussed uterine synechiae. 12/13/23 -?-?-?-?-?-?-?-?-?-?-?-?- 28w 0d 125 lb 4 oz (+17 lb 4 oz) 110/70 Negative -?-?-?-?-?-?-?-?-?-?-?-?- Negative 145 29 -?-?-?-?-?-?-?-?-?-?-?-?- -NO VB, LOF. G ood FM Declines flu/tdap. Larc done 12/28/23 -?-?-?-?-?-?-?-?-?-?-?-?- 30w 1d 128 lb 4 oz (+20 lb 4 oz) 114/74 -?-?-?-?-?-?-?-?-?-?-?-?- 155 30 -?-?-?-?-?-?-?-?-?-?-?-?- JV- declines flu and tdap. no lof, vaginal bleeding, or dec fm. discussed RSV. has follow up uterine synechiae appt end of month. 01/12/24 -?-?-?-?-?-?-?-?-?-?-?-?- 32w 2d 131 lb 2 oz (+23 lb 2 oz) 109/69 Negative -?-?-?-?-?-?-?-?-?-?-?-?- Negative 125 33 -?-?-?-?-?-?-?-?-?-?-?-?- JV- anatomy scan reviewed. no complaints. JV- scan reviewed. no compl aints. AC 94th% 01/25/24 -?-?-?-?-?-?-?-?-?-?-?-?- 34w 1d 132 lb (+24 lb) 106/69 Negative -?-?-?-?-?-?-?-?-?-?-?-?- Negative 146 35 -?-?-?-?-?-?-?-?-?-?-?-?- JV- planning on repeating ultrasound in 2 weeks. cbc today. 02/08/24 -?-?-?-?-?-?-?-?-?-?-?-?- 36w 1d 136 lb 8 oz (+28 lb 8 oz) 105/72 Negative -?-?-?-?-?-?-?-?-?-?-?-?- Negative 140 36 Cephalic 1 .5 -?-?-?-?-?-?-?-?-?-?-?-?- 60 -1 SM- no vb lof good fm no reuglar ctx gbs done reviewed growth US 02/15/24 -?-?-?-?-?-?-?-?-?-?-?-?- 37w 1d 136 lb 2 oz (+28 lb 2 oz) 110/70 Negative -?-?-?-?-?-?-?-?-?-?-?-?- Negative 129 38 Cephalic 2 .5 -?-?-?-?-?-?-?-?-?-?-?-?- 70 -1 JV- no lof , vaginal bleeding, or dec fm. no complaints. 02/22/24 -?-?-?-?-?-?-?-?-?-?-?-?- 38w 1d 139 lb (+31 lb) 126/83 Negative -?-?-?-?-?-?-?-?-?-?-?-?- Negative 130 39 Cephalic 3 -?-?-?-?-?-?-?-?-?-?-?-?- 80 SM- no v b lof good fm nor euglar ctx ROS Constitutional Constitutional: Denies change in weight, fatigue, fever(s), headache(s), poor appetite or weakness Eyes Eyes: Denies blurry vision, change in vision, seeing flashes or spots in vision ENT HEENT: Denies dizziness, headache(s), loss taste/smell or sore throat Cardiovascular Cardiovascular: Denies chest pain, dizziness, dyspnea, irregular heart rhythm, leg edema, palpitations, rapid heart rate or vomiting Respiratory/Chest Respiratory/Chest: Denies chest tightness, cough, dyspnea or breast pain Gastrointestinal Gastrointestinal: Denies abdominal pain, anorexia, constipation, cramping, diarrhea, hemorrhoids, vomiting or weight changes Genitourinary Genitourinary: Denies dysuria, flank pain, genital lesions, genital pain, urinary frequency or urinary urgency Musculoskeletal Musculoskeletal: Denies back pain, difficulty walking, joint pain, limited range of motion, muscle cramps or numbness Integumentary Integumentary: Denies lesions or unusual bruising Neurologic Neurologic: Denies abnormal movements, abnormal speech, dizziness, numbness, seizure-like activity or syncope Psychiatric Psychiatric: Denies anxiety, behavioral changes, change in appetite, change in libido, cognitive impairment, confusion, depression, difficulty concentrating, hallucinations or suicidal thoughts Endocrine Endocrinology: Denies excessive sweating, polydipsia or polyuria Hematologic/Lymphatic Hematologic/Lymphatic: Denies easy bleeding, easy bruising or lymphadenopathy Allergic/Immunologic Allergic/Immunologic: Denies itchy eyes, lip swelling, seasonal rhinorrhea, rhinitis, throat swelling, tongue swelling, eczemia, wheezing or asthma Vital Signs Vital Signs Vital Signs: 02/23/24 21:43 02/23/24 21:43 02/23/24 21:45 Temperature Temperature Source Temporal Pulse Rate 93 Respiratory Rate Blood Pressure 132/90 H BP Systolic 132 BP Diastolic 90 Pulse Ox 02/23/24 21:45 02/23/24 21:45 02/23/24 21:45 Temperature 98.1 F Temperature Source Temporal Pulse Rate Respiratory Rate 16 Blood Pressure BP Systolic BP Diastolic Pulse Ox 02/23/24 21:45 02/23/24 21:45 02/23/24 21:58 Temperature 98.1 F Temperature Source Pulse Rate Respiratory Rate 16 Blood Pressure 121/80 H BP Systolic 121 BP Diastolic 80 Pulse Ox 02/23/24 21:58 02/24/24 01:40 02/24/24 01:40 Temperature Temperature Source Temporal Pulse Rate 86 Respiratory Rate 16 Blood Pressure BP Systolic BP Diastolic Pulse Ox 02/24/24 01:40 02/24/24 01:41 02/24/24 01:41 Temperature 99.2 F H Temperature Source Pulse Rate 109 H Respiratory Rate Blood Pressure 129/79 H BP Systolic 129 BP Diastolic 79 Pulse Ox 02/24/24 02:45 02/24/24 02:45 02/24/24 02:50 Temperature Temperature Source Pulse Rate 95 102 H Respiratory Rate Blood Pressure BP Systolic BP Diastolic Pulse Ox 98 02/24/24 02:50 02/24/24 02:55 02/24/24 02:55 Temperature Temperature Source Pulse Rate 107 H Respiratory Rate Blood Pressure BP Systolic BP Diastolic Pulse Ox 98 100 02/24/24 02:57 02/24/24 02:57 02/24/24 02:57 Temperature Temperature Source Pulse Rate 121 H Respiratory Rate 16 Blood Pressure 126/78 H BP Systolic 126 BP Diastolic 78 Pulse Ox 02/24/24 02:58 02/24/24 02:58 02/24/24 02:58 Temperature Temperature Source Pulse Rate 116 H Respiratory Rate 16 Blood Pressure 128/78 H BP Systolic 128 BP Diastolic 78 Pulse Ox 02/24/24 03:00 02/24/24 03:00 02/24/24 03:03 Temperature Temperature Source Pulse Rate 109 H Respiratory Rate Blood Pressure 131/76 H BP Systolic 131 BP Diastolic 76 Pulse Ox 99 02/24/24 03:03 02/24/24 03:03 02/24/24 03:05 Temperature Temperature Source Pulse Rate 115 H 118 H Respiratory Rate 16 Blood Pressure BP Systolic BP Diastolic Pulse Ox 02/24/24 03:05 02/24/24 03:07 02/24/24 03:07 Temperature Temperature Source Pulse Rate 114 H Respiratory Rate Blood Pressure 125/75 H BP Systolic 125 BP Diastolic 75 Pulse Ox 96 02/24/24 03:07 02/24/24 03:10 02/24/24 03:10 Temperature Temperature Source Pulse Rate 120 H Respiratory Rate 16 Blood Pressure BP Systolic BP Diastolic Pulse Ox 93 02/24/24 03:13 02/24/24 03:13 02/24/24 03:13 Temperature Temperature Source Pulse Rate 113 H Respiratory Rate 16 Blood Pressure 120/69 BP Systolic 120 BP Diastolic 69 Pulse Ox 02/24/24 03:15 02/24/24 03:15 02/24/24 03:17 Temperature Temperature Source Pulse Rate 108 H 99 Respiratory Rate Blood Pressure BP Systolic BP Diastolic Pulse Ox 95 02/24/24 03:17 02/24/24 03:17 02/24/24 03:17 Temperature Temperature Source Pulse Rate 94 Respiratory Rate Blood Pressure 108/60 BP Systolic 108 BP Diastolic 60 Pulse Ox 94 02/24/24 03:17 02/24/24 03:20 02/24/24 03:20 Temperature Temperature Source Pulse Rate 102 H Respiratory Rate 16 Blood Pressure BP Systolic BP Diastolic Pulse Ox 98 02/24/24 03:25 02/24/24 03:25 02/24/24 03:25 Temperature Temperature Source Pulse Rate 122 H 123 H Respiratory Rate Blood Pressure 131/78 H BP Systolic 131 BP Diastolic 78 Pulse Ox 02/24/24 03:25 02/24/24 03:25 02/24/24 03:28 Temperature Temperature Source Pulse Rate Respiratory Rate 16 Blood Pressure 111/74 BP Systolic 111 BP Diastolic 74 Pulse Ox 98 02/24/24 03:28 02/24/24 03:28 02/24/24 03:30 Temperature Temperature Source Pulse Rate 118 H 106 H Respiratory Rate 18 Blood Pressure BP Systolic BP Diastolic Pulse Ox 02/24/24 03:30 02/24/24 03:32 02/24/24 03:32 Temperature Temperature Source Pulse Rate 105 H Respiratory Rate Blood Pressure 115/79 BP Systolic 115 BP Diastolic 79 Pulse Ox 97 02/24/24 03:32 02/24/24 03:34 02/24/24 03:34 Temperature Temperature Source Pulse Rate 110 H Respiratory Rate 16 Blood Pressure BP Systolic BP Diastolic Pulse Ox 92 02/24/24 03:35 02/24/24 03:35 02/24/24 03:37 Temperature Temperature Source Pulse Rate 125 H Respiratory Rate Blood Pressure 108/57 L BP Systolic 108 BP Diastolic 57 Pulse Ox 97 02/24/24 03:37 02/24/24 03:37 02/24/24 03:40 Temperature Temperature Source Pulse Rate 110 H 102 H Respiratory Rate 16 Blood Pressure BP Systolic BP Diastolic Pulse Ox 02/24/24 03:40 02/24/24 03:43 02/24/24 03:43 Temperature Temperature Source Pulse Rate 90 Respiratory Rate Blood Pressure 97/53 L BP Systolic 97 BP Diastolic 53 Pulse Ox 96 02/24/24 03:43 02/24/24 03:45 02/24/24 03:45 Temperature Temperature Source Pulse Rate 100 Respiratory Rate 16 Blood Pressure BP Systolic BP Diastolic Pulse Ox 98 02/24/24 03:45 02/24/24 03:48 02/24/24 03:48 Temperature 98.2 F Temperature Source Pulse Rate 86 Respiratory Rate Blood Pressure 90/61 BP Systolic 90 BP Diastolic 61 Pulse Ox 02/24/24 03:48 02/24/24 03:50 02/24/24 03:50 Temperature Temperature Source Pulse Rate 100 Respiratory Rate 16 Blood Pressure BP Systolic BP Diastolic Pulse Ox 97 02/24/24 03:53 02/24/24 03:53 02/24/24 03:53 Temperature Temperature Source Pulse Rate 93 Respiratory Rate 16 Blood Pressure 99/54 L BP Systolic 99 BP Diastolic 54 Pulse Ox 02/24/24 03:55 02/24/24 03:55 02/24/24 03:58 Temperature Temperature Source Pulse Rate 97 Respiratory Rate Blood Pressure 103/59 L BP Systolic 103 BP Diastolic 59 Pulse Ox 97 02/24/24 03:58 02/24/24 03:58 02/24/24 04:00 Temperature Temperature Source Pulse Rate 95 94 Respiratory Rate 16 Blood Pressure BP Systolic BP Diastolic Pulse Ox 02/24/24 04:00 02/24/24 04:02 02/24/24 04:02 Temperature Temperature Source Pulse Rate 94 Respiratory Rate Blood Pressure 101/56 L BP Systolic 101 BP Diastolic 56 Pulse Ox 96 02/24/24 04:02 02/24/24 04:05 02/24/24 04:05 Temperature Temperature Source Pulse Rate 97 Respiratory Rate 16 Blood Pressure BP Systolic BP Diastolic Pulse Ox 98 02/24/24 04:08 02/24/24 04:08 02/24/24 04:08 Temperature Temperature Source Pulse Rate 110 H Respiratory Rate 16 Blood Pressure 117/78 BP Systolic 117 BP Diastolic 78 Pulse Ox 02/24/24 04:10 02/24/24 04:10 02/24/24 04:13 Temperature Temperature Source Pulse Rate 118 H Respiratory Rate Blood Pressure 103/58 L BP Systolic 103 BP Diastolic 58 Pulse Ox 98 02/24/24 04:13 02/24/24 04:13 02/24/24 04:44 Temperature Temperature Source Pulse Rate 117 H Respiratory Rate 16 Blood Pressure 111/71 BP Systolic 111 BP Diastolic 71 Pulse Ox 02/24/24 04:44 02/24/24 05:14 02/24/24 05:14 Temperature Temperature Source Pulse Rate 94 96 Respiratory Rate Blood Pressure 120/76 BP Systolic 120 BP Diastolic 76 Pulse Ox 02/24/24 05:14 02/24/24 05:14 02/24/24 05:14 Temperature 98.2 F Temperature Source Oral Pulse Rate Respiratory Rate 18 Blood Pressure BP Systolic BP Diastolic Pulse Ox 02/24/24 06:26 02/24/24 06:26 Temperature Temperature Source Pulse Rate 88 Respiratory Rate Blood Pressure 124/75 H BP Systolic 124 BP Diastolic 75 Pulse Ox Weight Weight: 136 lb Body Mass Index (BMI) 25.7 Physical Exam Const alert, oriented x3, no apparent distress and healthy appearing General Appearance: cooperative; Negative for anxious HEENT normocephalic Face and Sinus: normal facial exam Eyes EOMs intact bilaterally and no scleral icterus General Eye: normal appearance of both eyes Neck full ROM and supple Lymph Lymphatic: no lymphadenopathy noted Chest Chest: abnormal inspection of the chest Resp normal respiratory effort Effort and Inspection: able to speak in complete sentences Cardio regular rate GI soft to palpation and non-tender Inspection: gravid Palpation: soft; Negative for tender external exam normal Narrative: cx is completely dilated. membranes were ruptured artificially about 1 hour ago. She is now involuntarily pushing. Back/Spine no CVA tenderness Extremity normal to inspection, full ROM and no clubbing, cyanosis or edema General Extremity: Negative for calf tenderness or edema Skin Lesions: no lesions Rashes: no rashes Psych mental status grossly normal Labs Labs Labs: Blood Type B POSITIVE Antibody Screen NEGATIVE Hct 39.3 % (37-47) Hgb 13.6 g/dL (12.0-15.0) Obstetrics Ultrasound Syphilis Total Ab Non-reactive Rubella IgG Antibody Reactive (Nonreactive) Hep Bs Antigen Non-Reactive (Nonreactive) Hepatitis C Antibody Non-Reactive (Nonreactive) Chlamydia DNA (ANTIONETTE) Negative (Negative) N.gonorrhoeae DNA (ANTIONETTE) Negative (Negative) HIV 1&2 Antibody Non-Reactive (Nonreactive) Glucose 1 Hr 50 gm 126 mg/dL (70-140) Assessment & Plan (1) Anemia affecting : COMMENT: Repeat CBC in 4wks (2) Uterine synechiae: COMMENT: seen at initial MFM scan and on fu [facility] scan, no involvement. (3) Supervision of normal : QUALIFIERS: Normal : normal first Trimester: second trimester Qualified Code(s): Z34.02 - Encounter for supervision of normal first , second trimester COMMENT: [id number], TALHA 03/06, boy- : Musa (4) : QUALIFIERS: Weeks of gestation: 38 weeks Qualified Code(s): Z3A.38 - 38 weeks gestation of COMMENT: GBS Negative, nl anatomy, LR NIPT. Declines carrier screen PLAN: Plan Patient presents IAL, plan expectant management for , AROM Performed ealier Pain management: epidural already running . GBS negative . Management of any complications: none I have reviewed the [facility] and made any clinically relevant updates.
--- NOTE | 2024-02-24 06:54 | PCM.DC ---
Discharge Instructions Diet Discharge Diet: No restrictions DC O2, CPAP, BIPAP needs Additional Home O2 Discharge instructions: No Dressing / Incision Discharge Activity: Return to Normal Activity, May Not Drive (while taking narcotic pain medications.) and May Shower May resume sexual activity in: 4-6 weeks Dressing / Incision Call your doctor if your incision/area has: Continuous Slow Oozing, Sudden Increased Bleeding, Increased Pain/ Swelling, Increased Redness and Foul Smelling Discharge Follow Up Care Please Follow Up With: Brittany Adkins, When: Call [phone] to make an appointment with your doctor in 6 weeks. If you had elevated blood pressure or 4th degree laceration, you will need to be seen in 2 weeks. Test Results: Test results from this visit will be discussed in further detail at your follow-up appointment, if applicable. Discharge Plan Admission Admit Date/Time: 02/24/24 01:50 Attending Provider: Brittany Adkins Primary Care Provider: Mera Jovel Discharge Orders/Prescriptions Prescriptions: No Action DHA 200 mg capsule 1 mg PO Referrals / Follow Up: Mera Jovel, COMMUNITY SERVICE SPECIALIST-C [Primary Care Provider] -
[2024-02-24] MEDS: Lactated Ringers 1,000 ML 200 ML IV (07:36)
[2024-02-24] MEDS: Oxytocin 15 Units/NS 250ml 15 UNITS/250 ML IV.SOLN 334 UNITS IV (07:50)
[2024-02-24] MEDS: Oxytocin 15 Units/NS 250ml 15 UNITS/250 ML IV.SOLN 83 UNITS IV (08:20)
--- NOTE | 2024-02-24 08:20 | EX.PCM.OBVAG ---
Assessment & Plan (1) Maternal exhaustion complicating labor and delivery: (2) Anemia affecting : COMMENT: Repeat CBC in 4wks (3) Uterine synechiae: COMMENT: seen at initial MFM scan and on fu WC scan, no involvement. (4) Supervision of normal : QUALIFIERS: Normal : normal first Trimester: second trimester Qualified Code(s): Z34.02 - Encounter for supervision of normal first , second trimester COMMENT: [id number], TALHA 03/06, boy- : Musa (5) : QUALIFIERS: Weeks of gestation: 38 weeks Qualified Code(s): Z3A.38 - 38 weeks gestation of COMMENT: GBS Negative, nl anatomy, LR NIPT. Declines carrier screen Maternal Data Information TALHA Calculator Estimated Delivery Date Method Current WG Current Estimate 03/06/24 LMP (Certain) 38w 6d Final TALHA: 03/06/24 Final TALHA Source: LMP Gestational age: 38 weeks 3 days Vaginal Delivery Maternal Presentation Maternal Presentation: Active Labor Type of Induction: Amniotomy Vaginal Delivery Information Procedure Performed: Vacuum Assisted Vaginal Delivery Station at time of placement: +2 Number of vacuum pulls: 2 Number of vacuum pop offs: 0 Surgeon/Practitioner: Brittany Adkins Date of Procedure: 02/24/24 Pre-Procedure Diagnosis: 28 y/o @ 38 weeks 3 days, maternal exhaustion with pushing Post-Procedure Diagnosis: 28 y/o @ 38 weeks 3 days, maternal exhaustion with pushing Type of anesthesia: Epidural Estimated Blood Loss: 100cc Time of Delivery: 07:47 Findings Description of procedure: The Patient was admitted to L&D in the middle of the night with painful contractions. An epidural was given when she made cervical change but she continue to have pain on her left side and continuous pressure feeling. Membranes were ruptured at 8 cm artificially. She began pushing involuntarily at 9 cm dilated. The cervix was pushed back and she progressed to complete. She continue to have q 30 second to 1 minute contractions persistently despite 2 fluid boluses. She pushed every 30 seconds to a minute for 1.5 hours and asked for a vacuum assistance. The kiwi vacuum was placed on the infant's head at a +2 station and delivered the head in the DAVY presentation with 2 pulls and zero pop offs. The head was delivered atraumatically and noted to be larger than average . The shoulders were not delivering spontaneously and the anterior hand was starting to show under the pubic bone. The hand was gently guided out and the anterior arm delivered, followed by the posterior shoulder without complications and then followed by the rest of the infant. The infant was placed on the maternal abdomen. Delayed cord clamping was employed for approximately 60 seconds. Cord was clamped and cut and gentle traction was applied to the cord and the placenta delivered spontaneously immediately following it was noted to be intact with three-vessel cord. The perineum and vagina were inspected and noted to have a 2nd degree perineal laceration. This was repaired with a 2-0 vicryl. EBL was 100 cc. Patient and infant tolerated delivery well. Presentation: Vertex Amniotic Fluid Description: Clear Placental Delivery Description: Spontaneous Placenta Disposition: [facility] Specimen collected: No Cord Vessel Description: 3 Vessels Cord Entanglement: None A Gender: Male (1 minute): 8 (5 minute): 9 Delayed Cord Clamping: Yes Senior Advisory laboratory animal facility supervisor: No Post Vaginal Deli Medications given after delivery: IV Pitocin Episiotomy Description: None Laceration: 2nd degree Complication Complications: No Multi Select Codes Urinary/Genital Urinary/Genital CPT Codes: 64048 Vaginal Delivery global pkg (vacuum assisted.)
[2024-02-24] MEDS: Lidocaine 1% (20 ml mdv) 20 ML Vial INFILT (08:46)
[2024-02-24] MEDS: Ibuprofen 600 MG Tablet PO (09:14)
[2024-02-24] MEDS: LACTATED RINGERS 500 ML 999 ML IV (10:35)
[2024-02-25 03:57] VITALS: BP 113/77; PULSE 89; PULSE 95; RESP 16; TEMP 36.9; O2SAT 98
--- NOTE | 2024-02-25 07:58 | PN.OBGYN_ITS ---
Subjective Subjective Patient doing well without complaints. Tolerating PO. Ambulating and voiding without difficulty. Feeding well. Denies chest pain, shortness of breath, calf pain/swelling, fevers, chills, lightheadedness. Objective Data Objective Data Vital Signs: Vital Signs Temp Pulse Resp BP Pulse Ox O2 Del Method 98.5 F 89 16 113/77 98 Room Air 02/25/24 03:57 02/25/24 03:57 02/25/24 03:57 02/25/24 03:57 02/25/24 03:57 02/25/24 03:57 Oxygen Delivery Method Room Air Weight: 136 lb Body Mass Index (BMI) 25.7 Intake & Output: Intake and Output for Last 24 Hours 02/23/24 02/24/24 02/25/24 23:59 23:59 23:59 Intake Total 3963.67 / 3963.67 Output Total 1300 / 1300 Balance 2663.67 / 2663.67 Lab / Micro Data Attestation: I reviewed the patient's lab results. 02/24/24 00:35 ROS Constitutional Constitutional: Reports systems reviewed and no addt'l complaints, except as documented; Denies anorexia or headache(s) Cardiovascular Cardiovascular: Reports systems reviewed and no addt'l complaints, except as documented; Denies dizziness, dyspnea, nausea or tachypnea Respiratory/Chest Respiratory/Chest: Reports systems reviewed and no addt'l complaints, except as documented; Denies cough, dyspnea, shortness of breath at rest or tachypnea Gastrointestinal Gastrointestinal: Reports systems reviewed and no addt'l complaints, except as documented; Denies abdominal pain, constipation or nausea Genitourinary Genitourinary: Reports systems reviewed and no addt'l complaints, except as documented; Denies burning urination, difficulty urinating, dysuria, urinary frequency or urinary incontinence Musculoskeletal Musculoskeletal: Reports systems reviewed and no addt'l complaints, except as documented Integumentary Integumentary: Reports systems reviewed and no addt'l complaints, except as documented Neurologic Neurologic: Reports systems reviewed and no addt'l complaints, except as documented; Denies abnormal speech, dizziness or headache(s) Psychiatric Psychiatric: Reports systems reviewed and no addt'l complaints, except as documented Endocrine Endocrinology: Reports systems reviewed and no addt'l complaints, except as documented Hematologic/Lymphatic Hematologic/Lymphatic: Reports systems reviewed and no addt'l complaints, except as documented Physical Exam Const alert, oriented x3 and no apparent distress Neck full ROM Resp normal respiratory effort, normal air movement and no retractions Effort and Inspection: able to speak in complete sentences and symmetric chest movement GI soft to palpation Bladder / Kidney Exam: bladder normal to palpation Uterus Palpation: uterus fundus Extremity normal to inspection and full ROM Psych mental status grossly normal, thought process normal and cooperative Assessment & Plan (1) Vaginal delivery: PLAN: s/p PPD # 1 1. routine post delivery care 2. breast feeding- support given 3. rh positive 4. rubella immune 5. Discharge home (2) Maternal exhaustion complicating labor and delivery: (3) Anemia affecting : COMMENT: Repeat CBC in 4wks (4) Uterine synechiae: COMMENT: seen at initial MFM scan and on fu [facility] scan, no involvement. (5) Supervision of normal : QUALIFIERS: Normal : normal first T rimester: second trimester Qualified Code(s): Z34.02 - Encounter for supervision of normal first , second trimester COMMENT: [id number], TALHA 03/06, boy- : Musa (6) : QUALIFIERS: Weeks of gestation: 38 weeks Qualified Code(s): Z 3A.38 - 38 weeks gestation of COMMENT: GBS Negative, nl anatomy, LR NIPT. Declines carrier screen Charges/Coding Multi Select Codes Urinary/Genital Urinary/Genital CPT Codes: No Charge
[2024-02-25 08:07] VITALS: BP 107/69; PULSE 85
[2024-02-25 08:11] VITALS: BP 107/69; PULSE 85; RESP 16; TEMP 36.6
--- NOTE | 2024-02-25 15:05 | CASEMGMT ---
Social Work Assessment Labor and Delivery Unit Patient Address: [address] [place] [place] [address] Phone number: [phone] Date of Referral: 02/24/2024 Time of Referral: 23:47 Referred By: Brittany Adkins Date of Intervention: ?02/25/2024 Time of Intervention: 15:05 Reason for Referral: Mental Health: History of anxiety and depression. History obtained from: Medical records, mother of baby (MOB) and father of baby (FOB).? Household composition: MOB (Dina, age 26), FOB (Musa) and Zack, born 02/24/2024. Patient's parent/guardian status: MOB and FOB have been together for 5 years and for 3 years . ??Both are actively involved and will be providing care for baby. MOB denied any concerns with domestic violence and described a positive and supportive relationship with the FOB. Medical History: : 1, Para, now 1. MOB received care through [facility] beginning at 8 weeks and 3 days and visits were routine. Apgars: 8 and 9. Weight: 8 pounds, 7lbs, 8 oz. Core Assembly Supervisor: Dr. Shant Peter. ? Educational Status: MOB and FOB denied any issues or concerns with reading or writing. MOB has a college degree in Social Work and the FOB is a high school graduate. Financial Status: MOB and FOB reported their income is sufficient to meet the needs of their family at this time. 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 ? Infant Supplies: MOB and FOB reported they have all the supplies they need for baby at this time including but not limited to: Car Seat, bassinet, pack-n-play, crib, diapers, bottles, breast pump and clothing. Childcare/Caregiver(s):? MOB reported that ?s paternal side of the family will care for baby while the MOB and FOB are working. Transportation:? MOB and FOB reported they are both licensed drivers and have a reliable vehicle to take baby to and from all medical appointments. No transportation issues identified. Programs/Agencies Involved: MOB and FOB denied any current programs or agencies involved at this time. Children Services/Legal Issues:? Denied. Behavioral Health Issues: ??Mental Health History: AARON has a history of anxiety and depression which she reported was due to the transition of moving to the [place] from [place] however is managed at this time.? MOB reported she was on medication for roughly 6 months and hasn?t needed to be on medication since that time.?Substance Use History: Denied.?Family History: Not reported.?? Drug Screens: ?None obtained at the time of this admission. ? Family/Social Stressors: ?MOB and FOB denied any current family or social stressors. Support Systems: Ample.? MOB identified her biggest supports as the FOB and the FOB?s family since all of the MOB?s family still reside in [place]. ? Depression/Shaken Baby/Safe Sleeping: toll transmission worker provided verbal and written education on PPD, Safe Sleeping and Shaken Baby.? Parents verbalized an understanding. ??? ASSESSMENT:? MOB and FOB provided consent to social work visit. Upon arrival, MOB was sitting upright in the hospital bed, the FOB was close-by and the nurse had just started the hearing test for but left shortly after. Both the MOB and FOB were verbally engaged. Driveway Attendant observed positive interaction between the MOB and FOB.? After the nurse left, nurse left the in the crib and that is where the remained throughout the assessment. At the end of the assessment, high school social studies tutor requested to speak with the MOB alone which both the MOB and FOB agreed to.? MOB reported feeling safe and denied any previous or current DV, drug or alcohol abuse or unmanaged MH concerns either with herself or with the FOB. Safe Plan of Care for related to substance use: N/A; not needed. ? PLAN:? Baby to be discharged home when ready.? toll transmission worker also provided written information on depression, depression resources and Help Me Grow as additional resources offered by high school social studies tutor which MOB and FOB accepted. No other services requested or indicated. Brittany Casanova, PROCESS SAFETY MANAGEMENT ENGINEER, METAL CAN INSPECTOR, METAL CAN INSPECTOR
[2024-02-25 15:19] VITALS: BP 117/72; PULSE 96; RESP 16
[2024-02-25] MEDS: Ibuprofen 600 MG Tablet PO (15:33)
== END 2024-02-25 16:40 | disposition home or self-care (01) | DRG 807 ==
LOC: WPOUT 01:53 → WP 04:03
PROVIDERS: Admitting Provider Obstetrics & Gynecology; PCP Nurse Practitioner Family; Referring Provider Obstetrics & Gynecology; Visit Provider Obstetrics & Gynecology
DX: O75.81 Maternal exhaustion complicating labor and delivery (principal); Z37.0 Single live birth; N85.6 Intrauterine synechiae; O99.02 Anemia complicating childbirth; O70.1 Second degree perineal laceration during delivery; O34.593 Maternal care for other abnormalities of gravid uterus, third trimester; O99.892 Other specified diseases and conditions complicating childbirth; Z3A.38 38 weeks gestation of pregnancy
CPT/HCPCS: 59025; 59050; 85025; 86780; 86850; 86900; 86901; 99221; J7120; A4216; G0378

== ENCOUNTER → 2024-03-20 | Outpatient (CLI) | payer OTHER, SELFPAY | END | disposition home or self-care (01) | LOC: LABSPEC 10:50 | PROVIDERS: PCP Nurse Practitioner Family; Referring Provider Nurse Practitioner Women's Health; Visit Provider Nurse Practitioner Women's Health | DX: N89.8 Other specified noninflammatory disorders of vagina (principal) | CPT/HCPCS: 87070; 87205 ==